=== PATIENT | male | born 1990 | race American Indian/Alaskan Native ===

== ENCOUNTER 2021-11-20 18:06 | Emergency (ER) | payer OTHER ==
--- NOTE | 2021-11-20 21:47 | Cat Scan Report ---
CT head/brain wo con, CT cervical spine wo con INDICATION: work injury. TECHNIQUE: CT head and cervical spine without contrast. All CT scans at this location are performed u sing CT dose reduction for ALARA by means of automated exposure control. COMPARISON: None. FINDINGS: HEAD: BRAIN PARENCHYMA: No acute intracranial hemorrhage. No evidence of recent infarct. No mass effect or midline shift. VENTRICULAR SYSTEM/EXTRA-AXIAL SPACES: Ventricles are normal for age. No extra-axial fluid collection . ORBITS: Normal as visualized. SKELETAL SYSTEM/SOFT TISSUES: Normal bones and soft tissues. PARANASAL SINUSES/MASTOID AIR CELLS: No significant abnormality. CERVICAL: Alignment: Reversal of normal cervical lordosis. No acute subluxation. Geographic Bone Lesion: None present. Fracture: No acute fracture. Degenerative Changes: Mild degenerative changes of C5-C6. Epidural Hematoma: Not present. Prevertebral / Paraspinal Soft Tissues: Unremarkable. IMPRESSION: 1. No acute intracranial abnormality. 2. No acute abnormality of the cervical spine. Signer Name: Tej Vanegas MD Signed: 11/20/2021 9:43 PM Workstation Name: [id number]
--- NOTE | 2021-11-21 03:06 | Emergency Department Report ---
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 There is no loss of consciousness but he states "I was stunned." He also reports some blurred vision at onset. No paresthesias or weakness of the extremities. He does state he has had some neck pain. No prior injuries to head or neck. No focal weakness slurred speech or dysphagia. MD Complaint: head injury, head pain Onset/Timin -: hour(s) Mechanism of Injury: work related injury Location: parietal Loss of Consciousness: no Previous Trauma to this Area: No Place: work Radiation: none Severity: moderate Severity scale (0 -10): 5 Quality: dull Consistency: constant Provoking factors: none known Other Injuries: none Associated Symptoms: denies other symptoms, vision changes (Immediately after incident for a few seconds.), neck pain. denies: confusion, amnesia, repetitive questioning, nausea, vomiting, vertigo, syncope, numbness, weakness, tingling - Related Data Allergies/Adverse reactions: Allergies Allergy/AdvReac Type Severity Reaction Status Date / Time No Known Allergies Allergy Unverified 11/20/21 20:09 ED Review of Systems ROS: Stated complaint: BOX FELL ON HEAD/ WORK RELATED INJURY Other details as noted in HPI Comment: All other systems reviewed and negative Constitutional: denies: chills, fever Eyes: denies: eye pain, eye discharge, vision change ENT: denies: ear pain, epistaxis Respiratory: no symptoms reported. denies: cough, shortness of breath Cardiovascular: denies: chest pain, palpitations, edema Gastrointestinal: denies: abdominal pain, nausea, vomiting, diarrhea Genitourinary: denies: hematuria Musculoskeletal: as per HPI. denies: back pain Skin: denies: rash, lesions, change in color Neurological: headache. denies: weakness, numbness, paresthesias, confusion, abnormal gait, vertigo Psychiatric: denies: anxiety, depression Hematological/Lymphatic: denies: easy bleeding, easy bruising ED Past Medical Hx - Past Medical History Previous Medical History?: Yes Hx Asthma: Yes - Surgical History Past Surgical History?: No - Family History Family history: no significant - Social History Smoking Status: Current Every Day Smoker Substance Use Type: None ED Physical Exam - General Limitations: No Limitations General appearance: alert, in no apparent distress - Head Head exam: Present: atraumatic, normocephalic - Eye Eye exam: Present: normal appearance, PERRL, EOMI Pupils: Present: normal accommodation - ENT ENT exam: Present: normal exam, TM's normal bilaterally - Neck Neck exam: Present: normal inspection, tenderness (Mild midline tenderness at C3-4 area), full ROM. Absent: meningismus, lymphadenopathy - Respiratory Respiratory exam: Present: normal lung sounds bilaterally. Absent: respiratory distress, wheezes, rales, rhonchi, stridor - Cardiovascular Cardiovascular Exam: Present: regular rate, normal rhythm, normal heart sounds - GI/Abdominal GI/Abdominal exam: Present: soft. Absent: distended, tenderness, guarding - Extremities Exam Extremities exam: Present: normal inspection, full ROM, normal capillary refill. Absent: tenderness - Back Exam Back exam: Present: normal inspection, full ROM. Absent: tenderness, CVA tenderness (R), CVA tenderness (L) - Neurological Exam Neurological exam: Present: alert, oriented X3, CN II-XII intact, normal gait, motor sensory deficit, reflexes normal - Psychiatric Psychiatric exam: Present: normal affect, normal mood - Skin Skin exam: Present: warm, dry, intact, normal color ED Course Vital Signs 11/20/21 11/21/21 20:09 03:29 Temperature 98.2 F 97.8 F Pulse Rate 92 H 88 Respiratory 18 15 Rate Blood Pressure 125/91 Blood Pressure 133/81 [Left] O2 Sat by Pulse 97 100 Oximetry - Reevaluation(s) Reevaluation #1: 11/21/21 03:09 Patient is here with his mother with whom he lives. Mother states she will be with him for the next 12 hours and agrees to monitoring him for that time period. - Radiology Data Radiology results: report reviewed [facility] Approval Date 2021-11-20 21:49:34 Other Patient ID My Comment(s) Study Comments [facility] [address] [place] [address] Cat Scan Report Signed Patient: GRZEGORZ BOLAÑOS MR#: [id number] : 1990 Acct:[id number] Age/Sex: 30 / M ADM Date: 11/20/21 Loc: ED Attending Dr: Ordering Physician: DANII AWAN MD Date of Service: 11/20/21 Procedure(s): CT cervical spine wo con Accession Number(s): [id number] cc: DANII AWAN MD CT head/brain wo con, CT cervical spine wo con INDICATION: work injury. TECHNIQUE: CT head and cervical spine without contrast. All CT scans at this location are performed using CT dose reduction for ALARA by means of automated exposure control. COMPARISON: None. FINDINGS: HEAD: BRAIN PARENCHYMA: No acute intracranial hemorrhage. No evidence of recent infarct. No mass effect or midline shift. VENTRICULAR SYSTEM/EXTRA-AXIAL SPACES: Ventricles are normal for age. No extra- axial fluid collection. ORBITS: Normal as visualized. SKELETAL SYSTEM/SOFT TISSUES: Normal bones and soft tissues. PARANASAL SINUSES/MASTOID AIR CELLS: No significant abnormality. CERVICAL: Alignment: Reversal of normal cervical lordosis. No acute subluxation. Geographic Bone Lesion: None present. Fracture: No acute fracture. Degenerative Changes: Mild degenerative changes of C5-C6. Epidural Hematoma: Not present. Prevertebral / Paraspinal Soft Tissues: Unremarkable. IMPRESSION: 1. No acute intracranial abnormality. 2. No acute abnormality of the cervical spine. Signer Name: Edd Arguelles MD Signed: 11/20/2021 9:43 PM Workstation Name: [id number] Transcribed By: JS Dictated By: EDD ARGUELLES MD Electronically Authenticated By: EDD ARGUELLES MD Signed Date/Time: 11/20/212142 DD/ 39 TD/TT: - Medical Decision Making Will send patient home with mother to monitor/head injury precautions given. - NEXUS Criteria Focal neurological deficit present: No Midline spinal tenderness present: Yes (C3-C4 mild tenderness no crepitus or deformity) Altered level of consciousness: No Intoxication present: No Distracting injury present: No NEXUS results: C-Spine cannot be cleared clinically by these results. Imaging is required. Critical care attestation.: If time is entered above; I have spent that time in minutes in the direct care of this critically ill patient, excluding procedure time. ED Disposition Clinical Impression: Head injury, Cervical strain, acute, Work related injury Disposition: 01 HOME / SELF CARE / HOMELESS Is pt being admited?: No Condition: Stable Instructions: Head Injury, Adult, How to Use Cold Therapy, [id number], Cervical Sprain, Head Injury, Adult, [id number] Additional Instructions: Tylenol as needed for pain. Return to ER if any change in mental status or paresthesias weakness of the extremities or face. Or if severe vomiting or other concerning symptoms. Forms: Work/School Release Form(ED) Time of Disposition: 03:14
[2021-11-21 03:37] VITALS: BP 133/81
== END 2021-11-21 06:10 | disposition home or self-care (01) ==
LOC: ED 18:06
DX: S16.1XXA Strain of muscle, fascia and tendon at neck level, initial encounter (principal); S09.90XA Unspecified injury of head, initial encounter; X58.XXXA Exposure to other specified factors, initial encounter; Y93.89 Activity, other specified; Y92.89 Other specified places as the place of occurrence of the external cause; Y99.8 Other external cause status
CPT/HCPCS: 70450; 72125; 99283